=== PATIENT | male | born 1970 | race Caucasian/White ===

== ENCOUNTER 2017-12-17 10:40 | Day surgery (SDC) | payer OTHER ==
[2017-12-17] MEDS ORDERED: LIDOCAINE 2% INJ 100 MG/5 ML SDV (FOR ANES.) As Ordered (13:19)
[2017-12-17] MEDS ORDERED: PROPOFOL 200 MG/20 ML VIAL As Ordered ×2 (13:19→13:26)
== END 2017-12-17 14:11 | disposition home or self-care (01) ==
LOC: M OPP 10:40
DX: R13.10 Dysphagia, unspecified (principal); R93.3 Abnormal findings on diagnostic imaging of other parts of digestive tract; K22.2 Esophageal obstruction; K31.89 Other diseases of stomach and duodenum; R12 Heartburn; K21.9 Gastro-esophageal reflux disease without esophagitis; M06.9 Rheumatoid arthritis, unspecified; Z79.899 Other long term (current) drug therapy
CPT/HCPCS: 43249